=== PATIENT | female | born 1945 | race Caucasian/White ===

== ENCOUNTER 2022-02-22 14:33 | Emergency (ER) | payer OTHER ==
[~2022-02-22] VITALS: Ht 165.1 cm; Wt 63.5 kg
--- NOTE | 2022-02-22 14:50 | NUR ---
STEPHEN GARCÍA from [facility] with c/o AMS and generalized weakness. Pt to room 5A via [facility].
[2022-02-22 15:17] LABS: HEMATOCRIT 37.4 % (31.2-41.9); MEAN CORPUSCULAR HEMOGLOBIN 30.9 uug (24.7-32.8); MEAN CORPUSCULAR VOLUME 90.3 fL (75.5-95.3); PLATELET COUNT (AUTO) 193 K/uL (179-408)
[2022-02-22 15:37] LABS: CARBON DIOXIDE 32 mmol/L (21-32); CHLORIDE 107 mmol/L (98-107); CREATININE 1.1 mg/dL (0.6-1.3); GLUCOSE 87 mg/dL (74-106); POTASSIUM 4.1 mmol/L (3.5-5.1); UREA NITROGEN, BLOOD 23 mg/dL (7-18)
[2022-02-22 15:53] LABS: ALANINE AMINOTRANSFERASE 37 U/L (14-59); ALKALINE PHOSPHATASE 91 U/L (50-136); ASPARTATE AMINOTRANSFERASE 21 U/L (15-37); BILIRUBIN,DIRECT 0.1 mg/dL (0.0-0.2); BILIRUBIN,TOTAL 0.2 mg/dL (0.2-1.0); TOTAL PROTEIN, SERUM 7.2 g/dL (6.4-8.2)
[2022-02-22 17:40] LABS: ACETAMINOPHEN < 2.0 ug/mL (10-30)
--- NOTE | 2022-02-22 19:38 | NUR ---
collected u/a sent to lab
--- NOTE | 2022-02-22 20:29 | NUR ---
Chelle from [facility], called back, informed pt. will be admitted to ER [facility]. ETA will be 2130 via [facility]. to endorse to [phone] Sunshine.
[2022-02-22 20:53] LABS: *BILIRUBIN,URIN NEGATIVE (NEGATIVE); *BLOOD, URINE NEGATIVE (NEGATIVE); *COLOR,URINE YELLOW (YELLOW); *KETONES,URINE TRACE (NEGATIVE); LEUKOCYTE ESTERASE ,URINE TRACE (NEGATIVE); NITRITE, URINE POSITIVE (NEGATIVE); UGLUCOSE NEGATIVE (NEGATIVE)
[2022-02-22] MEDS ORDERED: IV NS 1000 ML 1,000 ML IV ONE (21:00)
[2022-02-22 21:12] LABS: *CLARITY,URINE HAZY (CLEAR); RBC,URINE 0-3 /HPF (0-3)
[2022-02-22 21:13] LABS: BACTERIA,URINE MODERATE /HPF (NONE SEEN); SQUAMOUS EPITHELIAL CELL,UR FEW /HPF (NONE SEEN)
--- NOTE | 2022-02-22 21:25 | NUR ---
sent flu swab to lab
[2022-02-22] MEDS ORDERED: CEFTRIAXONE 1 G in IV DEXTROSE 5% 50 ML IV ONE (22:45)
--- NOTE | 2022-02-22 23:07 | NUR ---
Called [facility] endorsed with DORA Whelan. Informed Rocephin 1g will be given before leaving.
[2022-02-22] MEDS ORDERED: CEFTRIAXONE /D5W 50ML IVPB **ER PYXIS IV ONE (23:09)
--- NOTE | 2022-02-23 00:34 | NUR ---
Picked up by [facility].
[2022-02-23 01:02] VITALS: BP 120/90
== END 2022-02-23 01:13 | disposition short-term general hospital (02) ==
LOC: ER 14:33
DX: N39.0 Urinary tract infection, site not specified (principal); G93.41 Metabolic encephalopathy; R53.1 Weakness; Z20.822 Contact with and (suspected) exposure to COVID-19; I95.9 Hypotension, unspecified; E11.9 Type 2 diabetes mellitus without complications; I10 Essential (primary) hypertension; Z88.2 Allergy status to sulfonamides; Z88.8 Allergy status to other drugs, medicaments and biological substances; Z88.1 Allergy status to other antibiotic agents; Z91.010 Allergy to peanuts; F03.90 Unspecified dementia, unspecified severity, without behavioral disturbance, psychotic disturbance, mood disturbance, and anxiety; F32.9 Major depressive disorder, single episode, unspecified; J44.9 Chronic obstructive pulmonary disease, unspecified; G40.909 Epilepsy, unspecified, not intractable, without status epilepticus; K21.9 Gastro-esophageal reflux disease without esophagitis
CPT/HCPCS: 99285; 96365; 70450; 71045; 96361; 87426; 80076; 80048; 81001; 82140; 83880; 85025; 85730; 86850; 86900; 86901; 87400; 87040 ×2; 84484; 36415; 93005; 83605; 80299; 80179; J0696; J7040; A4663